=== PATIENT | female | born 1945 | race Caucasian/White ===

== ENCOUNTER 2025-02-01 18:58 | Emergency (ER) | payer MEDICARE, OTHER, SELFPAY ==
[2025-02-01 19:01] VITALS: BP 176/58; BMI 23.0
[2025-02-01 19:02] VITALS: BP 176/58
[2025-02-01 19:26] LABS: Hematocrit 34.2 % (37.0-47.0); Hemoglobin 12.0 g/dL (12.0-16.0); Mean Corp Hgb Conc. 35.1 g/dL (33.0-37.0); Mean Corpuscular Volume 90.0 fL (81.0-99.0); Nucleated Red Blood Cells % 0 %; Platelet Count 196 10^3/uL (130-400); Red Cell Dist. Width 12.4 % (11.5-14.5)
--- NOTE | 2025-02-01 19:41 | ED.GENMED ---
History of Present Illness
General
Chief Complaint: Fall
Time Seen by Provider: 02/01/25 19:09
History of Present Illness
History of Present Illness:
79-year-old female with history of high blood pressure presenting to the emergency department after a fall. Patient reports for the past year she has been struggling with balance issues and dizziness. She has followed with neurology and is
supposed to get an outpatient EMG, and is also scheduled for an MRI tomorrow. She notes prior to arrival, she was walking with her walker, started to feel dizzy and fell to her right side. Denies head injury or loss of consciousness. She arrives
with right hip pain, and has been unable to bear weight since the fall. Denies numbness or tingling to the extremity. Denies preceding chest pain or difficulty breathing. 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 Her initial hip
replacement was in 2012 from arthritis, status post revision in 2017 at [facility]. She had fentanyl prior to arrival with improvement of pain. Denies additional acute medical complaints.
Past History
Past History
ED Past Medical History: None
ED Past Surgical History: None
Social History
Tobacco: Non-smoker
Alcohol: None
Phy Exam
Physical Exam
Physical Exam:
General: Well-appearing, no clinical signs of dehydration, nontoxic and in no acute distress
HEENT: protecting airway
Neck: appears supple, no midline tenderness
CV: Normal heart rate, regular rhythm
Resp: No accessory muscle use, no increased work of breathing, lungs clear to auscultation bilaterally
Abd: Soft and non-distended, no tenderness to palpation
Extremities: Shortened and externally rotated right lower extremity with limited range of motion secondary to pain. Distal sensation and pulses intact.
Neuro: alert, no focal neurologic deficit
: deferred
Rectal: deferred
Psych: Normal affect
Skin: Intact
Course
Orders/Labs/Results
Orders:
Orders
02/01/25 19:11
EKG [Electrocardiogram (*1)] Urgent
Reason for Study: Vertigo / Dizzy
EKG- Treatment ONCE
02/01/25 19:14
Femur, Right 2 View [CR Femur - Right Min 2 Vw] Urgent
Comment:
Reason For Exam: fall
Hip, Right 2-3 Views [CR Hip - RT w/wo Pel 2-3 Vw*] Urgent
Comment:
Reason For Exam: fall
Include a pelvis x-ray?: Yes
02/01/25 19:18
ABO2 Urgent
BBK Wristband Number:
Associate notified that ABO2 has been ordered: [id number]
Date: 02/01/25
Time: 19:47
[employer] ID: [id number]
Basic Metabolic Panel Urgent
CBC/With Diff [Complete Blood Count/With Diff] Urgent
02/01/25 20:08
Type+Screen Urgent
BBK Wristband Number:
02/01/25 20:25
Morphine Sulfate 4 mg IV NOW STA
02/01/25 21:18
HYDROmorphone [Dilaudid] 1 mg IV NOW STA
02/01/25 22:54
Ondansetron Injectable [Zofran] 4 mg .ROUTE .STK-MED ONE
02/01/25 22:57
Ondansetron Injectable [Zofran] 4 mg IV NOW STA
Abnormal Lab Results
02/01/25
19:18
RBC 3.80 L 10^6/uL
(4.20-5.40)
Hct 34.2 L %
(37.0-47.0)
MCH 31.6 H pg
(27.0-31.0)
Abs Immat Gran (auto) 0.1 H 10^3/uL
(0-0.05)
Absolute Lymphs (auto) 1.0 L 10^3/uL
(1.2-3.4)
Absolute Monos (auto) 0.7 H 10^3/uL
(0.1-0.6)
Immature Gran % 0.6 H %
(0-0.5)
Neutrophils % 76.3 H %
(42.2-75.2)
Lymphocytes % 12.5 L %
(20.5-51.1)
Sodium 125 L mmol/L
(135-145)
Chloride 96 L mmol/L
(98-107)
Creatinine 0.5 L mg/dL
(0.6-1.0)
Glucose 109 H mg/dl
(70-99)
02/01/25 19:18
02/01/25 19:18
Vital Signs
Initial and Last Documented VS:
Initial Vital Signs
Temp Pulse Resp BP Pulse Ox
98.0 F 75 28 176/58 98
02/01/25 19:01 02/01/25 19:01 02/01/25 19:01 02/01/25 19:01 02/01/25 19:01
Last Documented Vital Signs
Temp Pulse Resp BP Pulse Ox
98.0 F 65 19 145/68 95
02/01/25 19:01 02/01/25 19:15 02/01/25 19:15 02/01/25 22:00 02/01/25 22:30
MDM/Problems Addressed
MDM/Problems Addressed:
79-year-old female presenting to the emergency department after a fall. Vital signs on arrival are significant for high blood pressure.
On exam patient is in no acute distress. Regarding fall, notes that she became dizzy prior to fall, which has been an ongoing issue for the past year. Given duration of symptoms, no focal neurologic deficits, no signs of head trauma, no indication
for advanced CT head imaging. No midline cervical neck tenderness. Will screen with EKG and laboratory analysis. From a trauma perspective, concern for right hip fracture or dislocation. No additional signs of trauma on exam. No present
neurovascular compromise to the extremity. Will obtain x-ray imaging of the right hip and femur.
21:00 -x-ray shows obvious fracture to the femur. In discussion with orthopedics, recommending transfer. Patient's prior physician was through [facility]. Will consult with [facility] transfer
22:00 -patient accepted to [facility], discussed with Dr. Heidi Gonzalez from orthopedics. Accepted for transfer to ER, accepted by Dr. Goldberg. Of note, patient is hyponatremic. Could be contributing to patient's balance issues. On prior laboratory
analysis, has been hyponatremic in the past, unclear if acute. Call placed to daughter for update, no answer. Did leave message.
*Pulse Oximetry
SaO2: 98
Oxygen Mode of Delivery: Room air
Patient hypoxic: no
*Critical Care Note
Total Time (30-74mins, 75-104mins- exclusive of procedures): Not Applicable
ED Attending Note
-
Portions of this chart may have been created with voice recognition software.� Occasional wrong word or��sound alike� substitutions may have occurred due to the inherent limitations of voice recognition software.
Discharge Plan
Departure
Patient Disposition: Acute Care Hospital
Date of Disposition: 02/01/25
Time of Disposition: 22:04
Discharge Problem:
Femur fracture, right
Prescriptions:
No Action
losartan 25 mg Tablet
25 mg PO DAILY
gabapentin 100 mg Capsule
100 mg PO BID
calcium carbonate-vitamin D3 [Calcium 600 + D(3)] 600 mg-10 mcg (400 unit) Tablet
1 tab PO DAILY
aflibercept 2 mg/0.05 mL Solution
2 mg INTRAVITREAL .EVERY 10-12 WEEKS
Referrals:
Li Aguilera MD [Family Provider, Internal Medicine]
Hospital Transfer
Other hospital: [facility]
I certify that the patient requires transfer: Yes
Discussed case with accepting physician: Dr. Goldberg
Reason for transfer: specialties available
Interventions
Interventions:
*Risk Screen - Suicide Last Done: 02/01/25 19:01
*General Assessment Last Done: 02/01/25 19:01
*Neglect/Abuse Screening Last Done: 02/01/25 19:01
*ED- Fall Risk Assessment Last Done: 02/01/25 19:01
*ED COVID-19 Vaccine History Last Done: 02/01/25 23:09
*Nursing Disposition Last Done: 02/01/25 23:09
ED-Musculoskeletal Assessment Last Done: 02/01/25 19:30
ED- Neurological Assessment Last Done: 02/01/25 19:30
ED-Skin Assessment Last Done: 02/01/25 19:30
Discharge Date and Time
Discharge Date/Time: 02/01/25 23:12
Print Language: WOLOF
[2025-02-01 19:47] LABS: Blood Urea Nitrogen 15 mg/dl (7-17); Calcium 9.0 mg/dl (8.4-10.2); Carbon Dioxide 25 mmol/L (22-30); Chloride 96 mmol/L (98-107); Estimated Creatinine Clearance 61 ml/min; Glucose 109 mg/dl (70-99); Sodium 125 mmol/L (135-145); eGFR > 60.00
[2025-02-01 20:00] VITALS: BP 158/63
[2025-02-01] MEDS: MORPHINE SULFATE 4 MG IV (20:35)
[2025-02-01 21:00] VITALS: BP 158/68
[2025-02-01] MEDS: DILAUDID 1 MG IV (21:22)
--- NOTE | 2025-02-01 21:34 | EDRN ---
Patient medicated for increased pain, patient needing to urinate, placed a purwick in place for her to go, patient asking about drinking something and position of her bed, explained to her she has a broken bone so nothing to drink incase they want
to do surgery and we can try adjusting the bed but due to where the break is, laying flat is the best position, patient not wanting to try position change and will remain flat.
[2025-02-01 22:00] VITALS: BP 145/68
[2025-02-01] MEDS: ZOFRAN 4 MG IV (22:57)
== END 2025-02-01 23:12 | disposition short-term general hospital (02) ==
LOC: EMR 18:58
PROVIDERS: EMERGENCY PHYSICIAN Student in an Organized Health Care Education/Training Program; FAMILY PHYSICIAN Internal Medicine Geriatric Medicine
DX: S72.341A Displaced spiral fracture of shaft of right femur, initial encounter for closed fracture (principal); E87.1 Hypo-osmolality and hyponatremia; I10 Essential (primary) hypertension; W18.39XA Other fall on same level, initial encounter; Y93.01 Activity, walking, marching and hiking; Z96.643 Presence of artificial hip joint, bilateral
CPT/HCPCS: 99284; 96374; 96375 ×2; 73502; 73552; 80048; 85025; 86850; 86900; 86901; 93005

== ENCOUNTER → 2025-04-09 08:35 | Outpatient (REF) | payer MEDICARE, OTHER, SELFPAY | LOC: MRI 3T 08:35 | PROVIDERS: ATTENDING PHYSICIAN Psychiatry & Neurology Neurology; FAMILY PHYSICIAN Internal Medicine Geriatric Medicine | DX: R29.6 Repeated falls (principal) | CPT/HCPCS: 70551 ==